=== PATIENT | male | born 1985 | race Caucasian/White ===

== ENCOUNTER → 2017-04-07 | Outpatient (CLI) | payer OTHER ==
[~2017-04-07] MED LIST: HYDROXYZINE HCL50 MG PO
== END | disposition home or self-care (01) ==
LOC: RAD 13:00 → EDSTATUS 13:00 → RAD 13:10
DX: R07.2 Precordial pain (principal); R00.2 Palpitations; R94.31 Abnormal electrocardiogram [ECG] [EKG]; Z82.49 Family history of ischemic heart disease and other diseases of the circulatory system
CPT/HCPCS: 75571; 75574